=== PATIENT | male | born 1975 | race Two or more races ===

== ENCOUNTER 2017-02-23 13:47 | Emergency (ER) | payer OTHER ==
[~2017-02-23] VITALS: Ht 177.8 cm; Wt 100.3 kg
[2017-02-23 16:14] VITALS: BP 133/94
== END 2017-02-23 16:17 | disposition home or self-care (01) ==
LOC: ED 16:11
DX: L03.211 Cellulitis of face (principal); K02.9 Dental caries, unspecified
CPT/HCPCS: 99283

== ENCOUNTER 2017-05-15 05:50 | Emergency (ER) | payer SELFPAY ==
[~2017-05-15] VITALS: Ht 175.3 cm; Wt 96.0 kg
[2017-05-15 05:52] VITALS: BP 134/86
== END 2017-05-15 06:17 ==
LOC: ED 06:00
DX: R73.9 Hyperglycemia, unspecified (principal); Z53.21 Procedure and treatment not carried out due to patient leaving prior to being seen by health care provider